=== PATIENT | male | born 1935 | race Asian ===

== ENCOUNTER 2021-07-02 15:43 | Emergency (ER) | payer OTHER ==
[~2021-07-02] VITALS: Ht 167.6 cm; Wt 56.7 kg
--- NOTE | 2021-07-02 15:43 | NUR ---
[facility]
[2021-07-02 15:47] VITALS: BP 135/78
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
--- NOTE | 2021-07-02 16:08 | NUR ---
Dr. Lyons evaluating patient at bedside.
--- NOTE | 2021-07-02 16:18 | NUR ---
XRAY AT PATIENT BEDSIDE
[2021-07-02 17:21] VITALS: BP 122/70
== END 2021-07-02 17:21 | disposition home or self-care (01) ==
LOC: MED 15:43
DX: S60.222A Contusion of left hand, initial encounter (principal); S80.212A Abrasion, left knee, initial encounter; V89.2XXA Person injured in unspecified motor-vehicle accident, traffic, initial encounter; Y93.89 Activity, other specified; Y92.410 Unspecified street and highway as the place of occurrence of the external cause; Y99.8 Other external cause status
CPT/HCPCS: 73130; 73562; 99284; Q0092